=== PATIENT | female | born 1960 | race Caucasian/White ===

== ENCOUNTER 2019-06-03 23:43 | Inpatient (IN) | payer SELFPAY ==
[~2019-06-03] VITALS: Ht 154.9 cm; Wt 75.0 kg
[2019-06-04] MEDS ORDERED: MECLIZINE 25MG TABLET PO ONE (00:45)
[2019-06-04] MEDS ORDERED: METOCLOPRAMIDE HCL 10MG/2ML VIAL IV ONE (00:45)
[2019-06-04] MEDS ORDERED: SODIUM CHLORIDE 0.9% 1,000 ML IV ONE (00:45)
[2019-06-04 01:14] LABS: BASOPHILS % 0.6 % (0.0-2.0); EOSINOPHILS % 0.5 % (0.0-5.0); HEMATOCRIT. 38.4 % (36.0-48.0); HEMOGLOBIN. 13.2 g/dL (12.0-16.0); LYMPHOCYTES % 17.1 % (20.0-50.0); MEAN CORPUSCULAR HEMOGLOBIN 29.1 pg (28.0-32.0); MEAN CORPUSCULAR VOLUME 84.8 fL (81.0-99.0); MEAN PLATELET VOLUME 9.7 fl (7.4-10.4); MONOCYTES % 5.3 % (2.0-8.0); NEUTROPHILS % 76.5 % (40.0-76.0); PLATELET 213 x1000/uL (130-400); RED BLOOD CELL COUNT 4.53 mill/uL (4.2-5.4); RED CELL DISTRIBUTION WIDTH 13.8 % (11.6-14.6)
[2019-06-04 01:20] LABS: CHLORIDE 104 mEq/L (98-107)
[2019-06-04] MEDS ORDERED: DIAZEPAM 5 MG TABLET PO ONE (02:15)
[2019-06-04] MEDS ORDERED: ACETAMINOPHEN 325MG TABLET PO PRN (04:30)
[2019-06-04] MEDS ORDERED: CLONIDINE 0.1MG TABLET PO PRN (04:30)
[2019-06-04] MEDS ORDERED: DIPHENHYDRAMINE 50MG/ML VIAL IV PRN (04:30)
[2019-06-04 06:59] VITALS: BP 149/69
[2019-06-04 08:00] VITALS: BP 152/81
[2019-06-04] MEDS ORDERED: HYDRALAZINE 20MG/ML VIAL IV PRN (08:59)
[2019-06-04] MEDS: ENOXAPARIN 40MG/0.4ML SYR SUBCUT SCH (09:42)
[2019-06-04] MEDS: AMLODIPINE 5MG TABLET PO SCH ×2 (09:43→21:53)
[2019-06-04] MEDS: MECLIZINE 25MG TABLET PO PRN (09:43)
[2019-06-04] MEDS ORDERED: MVI, ADULT NO.1 10 ML, FOLIC ACID 1 MG, THIAMINE HCL 100 MG in SODIUM CHLORIDE 0.9% 1,0... IV SCH ×4 (10:00)
[2019-06-04 11:25] VITALS: BP 165/68
[2019-06-04] MEDS: SODIUM CHLORIDE 0.9% INJ 3ML FLUSH IVF SCH ×2 (12:59→21:53)
[2019-06-04 13:00] VITALS: BP 165/74
[2019-06-04 16:00] VITALS: BP 130/68
[2019-06-04 20:00] VITALS: BP 134/74
[2019-06-04] MEDS ORDERED: ATORVASTATIN CALCIUM 40MG TABLET PO SCH (21:00)
[2019-06-05] VITALS: BP 133/68
[2019-06-05 04:00] VITALS: BP 139/67
[2019-06-05] MEDS: SODIUM CHLORIDE 0.9% INJ 3ML FLUSH IVF SCH (05:45)
[2019-06-05 07:57] VITALS: BP 151/81
[2019-06-05] MEDS: MECLIZINE 25MG TABLET PO PRN (08:50)
[2019-06-05] MEDS: ENOXAPARIN 40MG/0.4ML SYR SUBCUT SCH (08:50)
[2019-06-05] MEDS: AMLODIPINE 5MG TABLET PO SCH (08:50)
[2019-06-05 12:00] VITALS: BP 153/79
[2019-06-05 13:06] VITALS: BP 153/79
== END 2019-06-05 15:12 | disposition home or self-care (01) | DRG 111 ==
LOC: ER 23:43 → 8WST 06-04 04:29 → ENRESERV 06-04 05:11
PROVIDERS: ADMIT Internal Medicine; ATTEND Internal Medicine
DX: R42 Dizziness and giddiness (principal); E78.00 Pure hypercholesterolemia, unspecified; I10 Essential (primary) hypertension
CPT/HCPCS: 36415; 70551; 80061; 84484; 93005; 99285; J1650; J2765; J3411; J3490; J7030; J8597